=== PATIENT | female | born 1985 | race Caucasian/White ===

== ENCOUNTER 2017-06-15 11:18 | Emergency (ER) | payer MEDICAID ==
[~2017-06-15] VITALS: Ht 157.5 cm; Wt 57.8 kg
[~2017-06-15 11:18] MED LIST: IBUP-1984 PO
[2017-06-15] MEDS ORDERED: iohexol 300mg/ml 100ml inj. ONE (12:08)
[2017-06-15] MEDS ORDERED: HYDROcodone/acetaminophen 10/325mg tab PO ONE (13:25)
[2017-06-15 13:29] VITALS: BP 111/70
[2017-06-15] MEDS ORDERED: PRED10TA PO (14:13)
[2017-06-15] MEDS ORDERED: VALA100027 PO (14:13)
[2017-06-15] MEDS ORDERED: PROP10DR5 OP (14:13)
[2017-06-15] MEDS ORDERED: HYDR-565 PO (14:15)
== END 2017-06-15 14:55 | disposition home or self-care (01) ==
LOC: ER 11:19
DX: G51.0 Bell's palsy (principal); K08.89 Other specified disorders of teeth and supporting structures; J45.909 Unspecified asthma, uncomplicated; F12.10 Cannabis abuse, uncomplicated; Z98.890 Other specified postprocedural states; Z88.0 Allergy status to penicillin; Z88.5 Allergy status to narcotic agent
CPT/HCPCS: 70470; 70488; 99284; A6410; J7030; Q9967

== ENCOUNTER 2017-06-26 10:19 | Outpatient (CLI) | payer MEDICAID ==
[~2017-06-26 10:19] MED LIST changes: +HYDR-565 PO; +PRED10TA PO; +PROP10DR5 OP; +VALA100027 PO
== END 2017-06-26 23:59 | disposition home or self-care (01) ==
LOC: RAD 10:19
PROVIDERS: ATTEND Family Medicine
DX: Z86.69 Personal history of other diseases of the nervous system and sense organs (principal)
CPT/HCPCS: 95816

== ENCOUNTER 2017-07-04 20:10 | Emergency (ER) | payer MEDICAID ==
[~2017-07-04] VITALS: Ht 152.4 cm; Wt 59.1 kg
[2017-07-04] MEDS ORDERED: levetiracetam inj 1,500 MG in normal saline 100ml IV soln 85 ML IV STA (20:40)
[2017-07-04] MEDS ORDERED: diphenhydrAMINE 50 mg/ml inj IV ONE (20:55)
[2017-07-04] MEDS ORDERED: metoclopramide 5 mg/ml inj IV ONE (20:55)
[2017-07-04] MEDS ORDERED: ketorolac trometh. 30mg/ml inj. IV ONE (20:55)
[2017-07-04 22:35] VITALS: BP 137/73
[2017-07-10 11:15] LABS: GABAPENTIN, SERUM 7.5 ug/mL (4.0-16.0)
== END 2017-07-04 22:36 | disposition home or self-care (01) ==
LOC: ER 20:10
DX: R56.9 Unspecified convulsions (principal); R51 Headache; J45.909 Unspecified asthma, uncomplicated; F12.10 Cannabis abuse, uncomplicated; Z88.0 Allergy status to penicillin; Z88.5 Allergy status to narcotic agent; Z79.899 Other long term (current) drug therapy
CPT/HCPCS: 36415; 80164; 93005; 96374; 96375; 99285; J1200; J1885; J1953; J2765; J7030

== ENCOUNTER 2017-08-27 16:26 | Emergency (ER) | payer MEDICAID ==
[~2017-08-27] VITALS: Ht 157.5 cm; Wt 64.0 kg
[~2017-08-27 16:26] MED LIST changes: -HYDR-565 PO
[2017-08-27 18:07] LABS: URINE AMPHETAMINE SCREEN NEGATIVE (Neg); URINE BARBITUATE SCREEN NEGATIVE (Neg); URINE BENZODIAZEPINES SCREEN NEGATIVE (Neg); URINE CANNABINOID SCREEN POSITIVE (Neg); URINE COCAINE SCREEN NEGATIVE (Neg); URINE METHADONE SCREEN NEGATIVE (Neg); URINE OPIATE SCREEN NEGATIVE (Neg); URINE PHENCYCLIDINE SCREEN NEGATIVE (Neg)
[2017-08-27] MEDS ORDERED: GABA600T2 PO (20:08)
[2017-08-27] MEDS ORDERED: CARB100T7 PO (20:08)
[2017-08-27 21:09] LABS: BASOPHILS # (AUTO) 0.1 X10'3 (0-0.2); BASOPHILS % (AUTO) 1.5 % (0-1); EOSINOPHILS # (AUTO) 0.3 X10'3 (0-0.9); EOSINOPHILS % (AUTO) 4.6 % (0-6); HEMATOCRIT 40.2 % (35.0-45.0); HEMOGLOBIN 13.9 g/dl (12.0-16.0); LYMPHOCYTES # (AUTO) 2.4 X10'3 (1.1-4.8); LYMPHOCYTES % (AUTO) 33.3 % (21-51); MEAN CORPUSCULAR HEMOGLOBIN 31.8 PG (27.0-31.0); MEAN CORPUSCULAR HGB CONC 34.5 % (33.0-36.5); MEAN CORPUSCULAR VOLUME 92.1 FL (78-98); MEAN PLATELET VOLUME 8.5 FL (7.4-10.4); MONOCYTES # (AUTO) 0.5 X10'3 (0-0.9); MONOCYTES % (AUTO) 6.3 % (2-12); NEUTROPHILS % (AUTO) 54.3 % (42-75); PLATELET COUNT 219 X10'3 (140-440); RED BLOOD COUNT 4.36 X10'6 (4.20-5.60); RED CELL DISTRIBUTION WIDTH 16.9 % (11.5-14.5); WHITE BLOOD COUNT 7.3 X10'3 (4.5-11.0)
[2017-08-27 21:20] LABS: ALANINE AMINOTRANSFERASE 239 U/L (12-78); ALBUMIN 3.4 G/DL (3.4-5.0); ALBUMIN/GLOBULIN RATIO 0.9 (1.1-1.5); ALKALINE PHOSPHATASE 189 IU/L (46-116); ANION GAP 9 (8-16); ASPARTATE AMINO TRANSFERASE 132 U/L (10-37); BILIRUBIN,TOTAL 0.2 MG/DL (0.1-1.0); BLOOD UREA NITROGEN 19 MG/DL (7-18); BUN/CREATININE RATIO 28.8 (6.6-38.0); C-REACTIVE PROTEIN 0.19 MG/DL (0.0-0.5); CALCIUM 8.4 MG/DL (8.5-10.1); CHLORIDE 107 MMOL/L (99-107); CREATININE 0.66 MG/DL (0.40-0.90); GLUCOSE 86 MG/DL (70-104); POTASSIUM 4.1 MMOL/L (3.5-5.1); SODIUM 139 MMOL/L (135-145); TOTAL CARBON DIOXIDE 22.9 MMOL/L (24-32); TOTAL PROTEIN 7.2 G/DL (6.4-8.2); eGFR > 90 ML/MIN
[2017-08-27] MEDS ORDERED: acetaminophen 325mg tablet PO ONE (21:40)
[2017-08-27 22:16] VITALS: BP 116/69
[2017-08-27] MEDS ORDERED: CEPH-572 PO (22:20)
[2017-08-27] MEDS ORDERED: SULF1TAB49 PO (22:20)
[2017-08-27] MEDS ORDERED: DOXY100C2 PO (22:45)
== END 2017-08-27 23:00 | disposition home or self-care (01) ==
LOC: ER 16:28
DX: H02.401 Unspecified ptosis of right eyelid (principal); R51 Headache; J45.909 Unspecified asthma, uncomplicated; F12.90 Cannabis use, unspecified, uncomplicated; Z98.890 Other specified postprocedural states; Z88.0 Allergy status to penicillin; Z88.5 Allergy status to narcotic agent; Z79.2 Long term (current) use of antibiotics
CPT/HCPCS: 36415; 70450; 80053; 80305; 83605; 84145; 85025; 85651; 86140; 87040; 99285

== ENCOUNTER 2019-05-22 13:01 | Emergency (ER) | payer SELFPAY ==
[~2019-05-22 13:01] MED LIST changes: +CARB100T7 PO; +GABA600T13 PO; -PRED10TA PO; -PROP10DR5 OP; -VALA100027 PO
== END 2019-05-22 13:25 | disposition left against medical advice (07) ==
LOC: ER 13:02
DX: T14.8XXA Other injury of unspecified body region, initial encounter (principal); Z53.21 Procedure and treatment not carried out due to patient leaving prior to being seen by health care provider; W54.0XXA Bitten by dog, initial encounter; Y93.89 Activity, other specified; Y92.89 Other specified places as the place of occurrence of the external cause; Y99.8 Other external cause status

== ENCOUNTER 2019-05-28 09:21 | Emergency (ER) | payer MEDICAID ==
[~2019-05-28] VITALS: Ht 157.5 cm; Wt 61.0 kg
[2019-05-28 09:25] VITALS: BP 121/76
[2019-05-28] MEDS ORDERED: LIDOcaine 1% W/epiNEPHrine 1:200,000 10ml vial IJ ONE (09:45)
[2019-05-28] MEDS ORDERED: AMOX-422 PO (10:09)
[2019-05-28] MEDS ORDERED: BACDS PO (10:09)
== END 2019-05-28 10:29 | disposition home or self-care (01) ==
LOC: ER 09:22
DX: L02.511 Cutaneous abscess of right hand (principal); L02.512 Cutaneous abscess of left hand; J45.909 Unspecified asthma, uncomplicated; F17.200 Nicotine dependence, unspecified, uncomplicated; F12.90 Cannabis use, unspecified, uncomplicated; Z86.14 Personal history of Methicillin resistant Staphylococcus aureus infection; Z86.69 Personal history of other diseases of the nervous system and sense organs; Z98.890 Other specified postprocedural states; Z88.5 Allergy status to narcotic agent; Z79.899 Other long term (current) drug therapy
CPT/HCPCS: 10061; 87070; 87077; 87186; 99284